=== PATIENT | male | born 1965 | race Caucasian/White ===

== ENCOUNTER 2018-11-28 08:30 | Day surgery (SDC) | payer OTHER ==
[~2018-11-28] VITALS: Ht 172.7 cm; Wt 83.6 kg
[~2018-11-28 08:30] MED LIST: CELEXA; DESCOVY; PREZISTA
[2018-11-28 09:11] VITALS: Ht 172.7 cm; Wt 83.6 kg
[2018-11-28 09:52] VITALS: BP 132/72; PULSE 76; RESP 12
[2018-11-28 11:02] VITALS: BP 111/65; PULSE 61; RESP 15
== END 2018-11-28 11:40 | disposition home or self-care (01) ==
LOC: GIL 08:30
PROVIDERS: ATTEND Internal Medicine Gastroenterology
DX: Z12.11 Encounter for screening for malignant neoplasm of colon (principal); K64.9 Unspecified hemorrhoids